=== PATIENT | female | born 1970 | race Caucasian/White ===

== ENCOUNTER 2020-02-20 16:25 | Emergency (ER) | payer OTHER ==
[2020-02-20 17:17] VITALS: BP 119/83; PULSE 101; TEMP 98.5; BMI 35.2
[2020-02-20] MEDS ORDERED: diazePAM 5 MG TABLET PO ONE (17:51)
[2020-02-20] MEDS ORDERED: predniSONE 20 MG TABLET (UD) PO ONE (17:51)
[2020-02-20] MEDS ORDERED: KETOROLAC TROMETHAMINE 30 MG/1 ML VIAL IM ONE (17:51)
[2020-02-20] MEDS ORDERED: predniSONE 20 MG TABLET (UD) ONE (18:02)
[2020-02-20] MEDS ORDERED: KETOROLAC TROMETHAMINE 30 MG/1 ML VIAL ONE (18:02)
[2020-02-20] MEDS ORDERED: diazePAM 5 MG TABLET ONE (18:03)
== END 2020-02-20 18:28 | disposition home or self-care (01) ==
LOC: JERFT 16:25
PROC: 3E0233Z Introduction of Anti-inflammatory into Muscle, Percutaneous Approach (ICD-10-PCS; principal; 2020-02-20)
DX: M54.32 Sciatica, left side (principal)
CPT/HCPCS: 99284-25

== ENCOUNTER 2022-03-14 12:23 | Emergency (ER) | payer OTHER ==
[2022-03-14 12:51] VITALS: BP 165/100; PULSE 95; RESP 18; TEMP 98.7; BMI 35.2
[2022-03-14] MEDS ORDERED: KETOROLAC TROMETHAMINE 30 MG/1 ML VIAL IM ONE (14:52)
[2022-03-14] MEDS ORDERED: KETOROLAC TROMETHAMINE 30 MG/1 ML VIAL ONE (15:00)
== END 2022-03-14 16:31 | disposition home or self-care (01) ==
LOC: JERFT 12:23
PROC: 3E0233Z Introduction of Anti-inflammatory into Muscle, Percutaneous Approach (ICD-10-PCS; principal; 2022-03-14)
DX: M79.2 Neuralgia and neuritis, unspecified (principal); M79.641 Pain in right hand
CPT/HCPCS: 73110-TC-RT-FY; 73130-TC-RT-FY; 99284-25

== ENCOUNTER 2023-07-11 10:38 | Emergency (ER) | payer OTHER ==
[2023-07-11 10:45] VITALS: BP 140/87; PULSE 88; RESP 18; TEMP 98.3; BMI 35.2
[2023-07-11] MEDS ORDERED: IBUPROFEN 600 MG TABLET (FP) PO ONE (12:54)
[2023-07-11] MEDS: IBUPROFEN 600 MG TABLET (FP) PO ONE (12:56)
== END 2023-07-11 13:11 | disposition home or self-care (01) ==
LOC: JERFT 10:38
DX: S63.501A Unspecified sprain of right wrist, initial encounter (principal); W10.1XXA Fall (on)(from) sidewalk curb, initial encounter; Y92.480 Sidewalk as the place of occurrence of the external cause
CPT/HCPCS: 73110-TC-RT-FY; 99283-25

== ENCOUNTER 2023-09-04 10:25 | Emergency (ER) | payer OTHER ==
[2023-09-04 11:20] VITALS: BP 130/90; PULSE 91; RESP 17; TEMP 98.7; BMI 37.0
[2023-09-04] MEDS ORDERED: oxyCODONE HCL 5 MG TABLET ONE (12:41)
[2023-09-04] MEDS: oxyCODONE HCL 5 MG TABLET PO ONE (12:50)
== END 2023-09-04 15:28 | disposition home or self-care (01) ==
LOC: JER 10:25
DX: M25.561 Pain in right knee (principal); M25.562 Pain in left knee; G89.29 Other chronic pain; M25.531 Pain in right wrist
CPT/HCPCS: 72170-TC-FY; 73562-TC-RT-FY; 73610-TC-RT-FY; 73630-TC-RT-FY; 93970-TC; 99284-25